=== PATIENT | female | born 1970 | race Caucasian/White ===

== ENCOUNTER → 2016-10-21 | Outpatient (CLI) | payer OTHER | END | disposition home or self-care (01) | LOC: MI 12:49 | DX: M25.552 Pain in left hip (principal); G89.29 Other chronic pain; R20.0 Anesthesia of skin ==

== ENCOUNTER → 2016-11-30 | Outpatient (CLI) | payer OTHER | END | disposition home or self-care (01) | LOC: MI 10:00 | PROC: BQ31ZZZ Magnetic Resonance Imaging (MRI) of Left Hip (ICD-10-PCS; principal; 2016-11-30) | DX: M25.552 Pain in left hip (principal); G89.29 Other chronic pain; R20.0 Anesthesia of skin ==